=== PATIENT | female | born 1950 | race African-American/Black ===

== ENCOUNTER 2017-09-30 09:00 | Outpatient (RCR) | payer OTHER | END 2017-10-07 | disposition home or self-care (01) | LOC: PTY 09:00 | PROVIDERS: ATTEND Internal Medicine | DX: M54.16 Radiculopathy, lumbar region (principal); M72.2 Plantar fascial fibromatosis; M67.01 Short Achilles tendon (acquired), right ankle ==

== ENCOUNTER 2017-10-14 10:00 | Outpatient (RCR) | payer OTHER | END 2017-11-04 | disposition home or self-care (01) | LOC: PTY 10:00 | PROVIDERS: ATTEND Internal Medicine | DX: M54.16 Radiculopathy, lumbar region (principal); M72.2 Plantar fascial fibromatosis; M67.01 Short Achilles tendon (acquired), right ankle ==

== ENCOUNTER 2017-12-02 11:00 | Outpatient (RCR) | payer OTHER | END 2017-12-05 | disposition home or self-care (01) | LOC: PTY 11:00 | PROVIDERS: ATTEND Internal Medicine | DX: M54.16 Radiculopathy, lumbar region (principal) ==

== ENCOUNTER 2017-12-16 11:00 | Outpatient (RCR) | payer OTHER | END 2018-01-04 | disposition home or self-care (01) | LOC: PTY 11:00 | PROVIDERS: ATTEND Internal Medicine | DX: M54.16 Radiculopathy, lumbar region (principal) ==

== ENCOUNTER 2018-01-06 11:03 | Outpatient (RCR) | payer OTHER | END 2018-02-04 | disposition home or self-care (01) | LOC: PTY 11:03 | PROVIDERS: ATTEND Internal Medicine | DX: M54.16 Radiculopathy, lumbar region (principal) ==